=== PATIENT | female | born 1950 | race Caucasian/White ===

== ENCOUNTER 2016-08-23 20:39 | Emergency (ER) | payer OTHER | END 2016-08-24 01:32 | disposition home or self-care (01) | LOC: ER 20:39 | DX: R10.84 Generalized abdominal pain (principal); R31.9 Hematuria, unspecified; R11.0 Nausea; J44.9 Chronic obstructive pulmonary disease, unspecified; M15.9 Polyosteoarthritis, unspecified; I10 Essential (primary) hypertension; K21.9 Gastro-esophageal reflux disease without esophagitis; E03.9 Hypothyroidism, unspecified; E78.00 Pure hypercholesterolemia, unspecified; F17.210 Nicotine dependence, cigarettes, uncomplicated; Z79.82 Long term (current) use of aspirin; Z79.899 Other long term (current) drug therapy | CPT/HCPCS: 36415; 96361; 96374; 96375; J1885 ==

== ENCOUNTER 2016-08-24 14:21 | Emergency (ER) | payer OTHER | END 2016-08-24 18:25 | disposition home or self-care (01) | LOC: ER 14:21 | DX: R10.30 Lower abdominal pain, unspecified (principal); R11.2 Nausea with vomiting, unspecified; I10 Essential (primary) hypertension; J44.9 Chronic obstructive pulmonary disease, unspecified; K21.9 Gastro-esophageal reflux disease without esophagitis; E03.9 Hypothyroidism, unspecified; F17.210 Nicotine dependence, cigarettes, uncomplicated; Z79.82 Long term (current) use of aspirin; Z79.899 Other long term (current) drug therapy | CPT/HCPCS: 36415; 96361; 96374; 96375; J1885 ==

== ENCOUNTER 2016-08-26 22:36 | Emergency (ER) | payer OTHER | END 2016-08-27 03:05 | disposition short-term general hospital (02) | LOC: ER 22:36 | DX: A41.9 Sepsis, unspecified organism (principal); K65.9 Peritonitis, unspecified; J44.9 Chronic obstructive pulmonary disease, unspecified; K21.9 Gastro-esophageal reflux disease without esophagitis; E03.9 Hypothyroidism, unspecified; F17.210 Nicotine dependence, cigarettes, uncomplicated; Z79.82 Long term (current) use of aspirin; Z79.899 Other long term (current) drug therapy | CPT/HCPCS: 36415; 96361; 96365; 96368; 96375; J1160 ==